=== PATIENT | male | born 1990 | race African-American/Black ===

== ENCOUNTER 2016-08-19 22:17 | Emergency (ER) | payer BC, OTHER ==
[~2016-08-19] VITALS: Ht 203.2 cm; Wt 138.7 kg
[2016-08-19 22:21] VITALS: TEMP 36.7; Ht 203.2 cm; Wt 138.7 kg
[2016-08-19] MEDS ORDERED: ONDANSETRON INJ 2 MG/ML 2 ML VIAL IV STA (22:37)
[2016-08-19] MEDS ORDERED: SODIUM CHLORIDE 0.9% 1000ML 1,000 ML IV ONE ×2 (22:45)
[2016-08-19 22:58] LABS: BASO % 0.6 %; BASO ABS # 0.03 K/uL (0-0.2); COMPLETE YES; EOS % 1.2 %; HEMATOCRIT 45.8 % (42-52); IG% 0.2 %; LYMPH % 34.4 %; LYMPH ABS # 1.72 K/uL (1.2-3.4); MEAN CELL VOLUME 84.8 fL (80-100); MEAN CORPUSCULAR HEMOGLOBIN 30.9 pg (25-34); MEAN CORPUSCULAR HGB CONC 36.5 g/dl (32-36); MEAN PLATELET VOLUME 11.2 fL (7.4-10.4); NEUT % 52.6 %; PLATELET COUNT 225 K/uL (130-400)
[2016-08-19 23:17] LABS: BUN/CREATININE RATIO 8.3 (10-20); CALCIUM 8.8 mg/dl (8.5-10.1); CREATININE 1.6 mg/dl (0.60-1.40)
[2016-08-19 23:20] LABS: ALB/GLOB RATIO 1.1 (0.9-2)
--- NOTE | 2016-08-20 00:14 | EMERGENCY ROOM VISIT NOTE ---
History First contact with patient: 22:25 Chief Complaint: GI ASSESSMENT Stated Complaint: NAUSEA, VOMITING, POSSIBLE DEHYDRATION Nursing Triage Summary: Patient reports emesis X 3 episodes this date, the last being described as bile s/p alcohol consumption last evening. Patient denies any abdominal pain, any fever, chills, diarrhea. Patient awake and oriented, appears in minimal distress on arrival. History of Present Illness The patient is a 26 year old male who presents to the Emergency Room with complaints of several episodes of vomiting over the course of the past day. The patient states that he did have a small amount of alcohol to drink last night, but has had vomiting throughout the course of today. He has not had, chills, or diarrhea. The patient is without significant abdominal pain or other symptoms. 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 He has not taken anything [id number] for his symptoms. He rates his current discomfort is 7/10. Review of Systems More than 10 systems were reviewed and otherwise negative with the exception of history of present illness. Past Medical/Surgical History Orthopedic injuries Family History No pertinent family history Social History Smoking Status: Never Smoker Occupation Status: [employer] student Current/Historical Medications No Active Prescriptions or Reported Meds Allergies Coded Allergies: No Known Allergies (Unverified , 08/19/16) Physical Exam Vital Signs Date Time Temp Pulse Resp B/P (MAP) Pulse Ox O2 Delivery O2 Flow Rate FiO2 08/19/16 22:21 36.7 77 18 142/89 98 Room Air Physical Exam VITALS: Vitals are noted on the nurse's note and reviewed by myself. Vital signs stable. GENERAL: Well-developed, well-nourished, black male, who is in no acute distress and resting comfortably. Patient is cooperative with the examination. HEAD: Normocephalic atraumatic. MOUTH: Mucous membranes moist. Tonsils are not enlarged. Pharynx without erythema, blood, or exudate. Uvula midline. Airway patent. NECK: Supple without nuchal rigidity. No lymphadenopathy. No thyromegaly. Cervical spine is nontender. HEART: Regular rate and rhythm without murmurs gallops or rubs. LUNGS: Clear to auscultation bilaterally without wheezes, rales or rhonchi. No retractions or accessory muscle use. ABDOMEN: Positive normal bowel sounds x 4. Soft, nontender, without masses or organomegaly. No guarding or rebound tenderness. Medical Decision & Procedures Laboratory Results 08/19/16 22:40 Red Blood Count 5.40, Mean Corpuscular Volume 84.8, Mean Corpuscular Hemoglobin 30.9, Mean Corpuscular Hemoglobin Concent 36.5, Mean Platelet Volume 11.2, Neutrophils (%) (Auto) 52.6, Lymphocytes (%) (Auto) 34.4, Monocytes (%) (Auto) 11.0, Eosinophils (%) (Auto) 1.2, Basophils (%) (Auto) 0.6, Neutrophils # (Auto ) 2.63, Lymphocytes # (Auto) 1.72, Monocytes # (Auto) 0.55, Eosinophils # (Auto ) 0.06, Basophils # (Auto) 0.03 08/19/16 22:40 Test 08/19/16 22:40 White Blood Count 5.00 K/uL (4.8-10.8) Red Blood Count 5.40 M/uL (4.7-6.1) Hemoglobin 16.7 g/dL (14.0-18.0) Hematocrit 45.8 % (42-52) Mean Corpuscular Volume 84.8 fL (80-100) Mean Corpuscular Hemoglobin 30.9 pg (25-34) Mean Corpuscular Hemoglobin Concent 36.5 g/dl (32-36) Platelet Count 225 K/uL (130-400) Mean Platelet Volume 11.2 fL (7.4-10.4) Neutrophils (%) (Auto) 52.6 % Lymphocytes (%) (Auto) 34.4 % Monocytes (%) (Auto) 11.0 % Eosinophils (%) (Auto) 1.2 % Basophils (%) (Auto) 0.6 % Neutrophils # (Auto) 2.63 K/uL (1.4-6.5) Lymphocytes # (Auto) 1.72 K/uL (1.2-3.4) Monocytes # (Auto) 0.55 K/uL (0.11-0.59) Eosinophils # (Auto) 0.06 K/uL (0-0.5) Basophils # (Auto) 0.03 K/uL (0-0.2) RDW Standard Deviation 41.5 fL (36.4-46.3) RDW Coefficient of Variation 13.4 % (11.5-14.5) Immature Granulocyte % (Auto) 0.2 % Immature Granulocyte # (Auto) 0.01 K/uL (0.00-0.02) Anion Gap 8.0 mmol/L (3-11) Est Creatinine Clear Calc Drug Dose 113.9 ml/min Estimated GFR () 68.9 Estimated GFR (Non- 59.4 BUN/Creatinine Ratio 8.3 (10-20) Calcium Level 8.8 mg/dl (8.5-10.1) Total Bilirubin 0.7 mg/dl (0.2-1) Aspartate Amino Transf (AST/SGOT) 25 U/L (15-37) Alanine Aminotransferase (ALT/SGPT) 35 U/L (12-78) Alkaline Phosphatase 62 U/L (45-117) Total Protein 8.1 gm/dl (6.4-8.2) Albumin 4.3 gm/dl (3.4-5.0) Globulin 3.8 gm/dl (2.5-4.0) Albumin/Globulin Ratio 1.1 (0.9-2) Lipase 111 U/L (73-393) Medications Administered Medications (Trade) Dose Ordered Sig/Maite Route Start Time Stop Time Status Last Admin Dose Admin Sodium Chloride 1,000 ml @ 999 mls/hr Q1H1M ONCE IV 08/19/16 22:45 08/19/16 23:45 DC 08/19/16 22:51 999 MLS/HR Sodium Chloride 1,000 ml @ 999 mls/hr Q1H1M ONCE IV 08/19/16 22:45 08/19/16 23:45 DC 08/19/16 22:51 999 MLS/HR Ondansetron HCl (Zofran Inj) 4 mg NOW STAT IV 08/19/16 22:37 08/19/16 22:39 DC 08/19/16 22:52 4 MG ED Course Physical exam and history were performed. Nursing notes and EMR were reviewed. Patient appears to have nausea and vomiting for the past one day. The patient does not appear toxic on examination. IV access was established and labs were obtained. He was hydrated with 2 L normal saline and given IV Zofran. The patient's blood work is as above and was reviewed. He does not have a significant elevated white blood cell count, gross anemia, bandemia, or significant electrolyte imbalance. Reexamination the patient continues without abdominal discomfort. Serial abdominal examinations do not show tenderness, and I do not suspect an acute surgical process. The patient's symptoms are likely food borne or possibly viral in etiology. He did feel much better after hydration and Zofran. I will give him a home pack of Zofran and have him follow with his primary care physician with any ongoing or persistent symptoms. The patient was pleased with this plan of her symptoms understanding. He rated his discomfort a 0/10 at the time of departure. The chart was completed utilizing [employer] Voice Recognition Software. Grammatical errors, random word insertions, pronoun errors, and incomplete sentences are an occasional consequence of this system due to software limitations, ambient noise, and hardware issues. Any formal questions or concerns about the content, text, or information contained within the body of this dictation should be directly addressed to the provider for clarification. . Medical Decision Differential diagnosis: Etiologies such as gastroenteritis, food borne illness, infections, appendicitis , diverticulitis, inflammatory bowel disease, obstruction, GI bleed, biliary pathology, as well as others were entertained. Impression Primary Impression: Nausea and vomiting Departure Information Dispostion Home / Self-Care Condition GOOD Prescriptions No Active Prescriptions or Reported Meds Forms HOME CARE DOCUMENTATION FORM, IMPORTANT VISIT INFORMATION Patient Instructions My [facility] Additional Instructions You were seen and evaluated today on an emergency basis only. This is not a substitute for, or an effort to provide, complete comprehensive medical care. It is not possible to recognize and treat all injuries or illnesses in a single emergency department visit. For this reason it is recommended that you followup with your primary care physician with any ongoing or persistent symptoms. Drink plenty of fluids and remain well hydrated. Zofran 1 tablet every 6 hrs as needed for nausea. You are welcome to return to the emergency department anytime with new, worsening, or concerning symptoms. Problem Qualifiers Primary Impression: Nausea and vomiting Vomiting type: unspecified Vomiting Intractability: non-intractable Qualified Codes: R11.2 - Nausea with vomiting, unspecified
[2016-08-20] MEDS ORDERED: ONDANSETRON HOME PACK 4MG OD TAB PO ONE (00:15)
[2016-08-20 00:21] VITALS: BP 135/74; PULSE 69; O2SAT 99
== END 2016-08-20 00:23 | disposition home or self-care (01) ==
LOC: C.EDB 22:19 → C.EDA 08-20 00:23
DX: R11.2 Nausea with vomiting, unspecified (principal); Z87.828 Personal history of other (healed) physical injury and trauma